=== PATIENT | female | born 1950 | race Caucasian/White ===

== ENCOUNTER 2016-07-17 18:27 | Emergency (ER) | payer OTHER ==
[~2016-07-17] VITALS: Ht 167.6 cm; Wt 59.0 kg
[~2016-07-17 18:27] MED LIST: CEPHALEXIN500 MG PO; MEDROL DOSEPAK1 PAC PO; NEURONTIN300 MG PO; PROVENTIL0.09 MG/A1 INH; ZOLOFT100 M1 PO
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
[2016-07-17 19:18] LABS: ABSOLUTE BASOPHIL COUNT 0 /CUMM (0.0-0.2); ABSOLUTE EOSINOPHIL COUNT 0.1 /CUMM (0.0-0.7); ABSOLUTE GRANULOCYTE CT 8.4 /CUMM (1.4-6.5); ABSOLUTE LYMPH COUNT 2.6 /CUMM (1.2-3.4); ABSOLUTE MONOCYTE COUNT 0.6 /CUMM (0.10-0.60); BASOPHIL % 0.2 % (0.0-2.0); EOSINOPHIL % 0.7 % (0-5); GRANULOCYTE % 71.4 % (42.2-75.2); HEMATOCRIT 44.8 % (37-47); MEAN CORPUSCULAR HGB 31.7 PG (27.0-31.0); MEAN CORPUSCULAR HGB CONC 33.7 G/DL (33.0-37.0); MEAN PLATELET VOLUME 8.1 FL (7.4-10.4); PLATELET COUNT 235 /CUMM (130-400); RBC DISTRIBUTION WIDTH 14.2 % (11.5-14.5); RED BLOOD CELL CT 4.77 /CUMM (4.20-5.40); WHITE BLOOD CELL COUNT 11.7 /CUMM (4.8-10.8)
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
[2016-07-18 14:34] VITALS: BP 143/62
[2016-07-18] MEDS ORDERED: KLONOPIN1 M1 PO (14:42)
[2016-07-18] MEDS ORDERED: VITAMIN D1000 UNIT PO (14:43)
== END 2016-07-18 15:39 ==
LOC: ERH 18:27
PROVIDERS: Physician Assistant
DX: F10.10 Alcohol abuse, uncomplicated (principal)
CPT/HCPCS: 80307; G0463; G0480

== ENCOUNTER 2017-09-07 00:31 | Emergency (ER) | payer OTHER, MEDICARE ==
[~2017-09-07 00:31] MED LIST changes: +KLONOPIN1 M1 PO; +VITAMIN D1000 UNIT PO
--- NOTE | 2017-09-07 00:36 | ED ANKLE/FOOT INJURY COMPLAINT ---
History of Present Illness General Chief Complaint: Foot or Ankle Injury Stated Complaint: RIGHT ANKLE INJURY Source: patient, family, old records Exam Limitations: no limitations Vital Signs & Intake/Output Vital Signs & Intake/Output Vital Signs Date Time Temp Pulse Resp B/P B/P Pulse O2 O2 Flow FiO2 Mean Ox Delivery Rate 09/07 0042 95.4 90 18 118/56 92 Room Air Allergies Coded Allergies: NO KNOWN ALLERGIES (04/26/12) Reconcile Medications Cholecalciferol (Vitamin D3) (Vitamin D) 1,000 UNIT TABLET 1 TAB PO DAILY SUPPLEMENT (Reported) Clonazepam (Klonopin) 1 MG TABLET 1 TAB PO QPM PRN SLEEP/ANXIETY (Reported) Oxycodone HCl/Acetaminophen (Percocet 5-325 MG Tablet) 5 MG-325 MG TABLET 1-2 TAB PO Q6P PRN PAIN Sertraline HCl (Zoloft) 100 MG TABLET 2 TAB PO DAILY MENTAL HEALTH (Reported) Triage Nurses Notes Reviewed? yes HPI: Patient fell while drinking on Thursday and injured her right ankle. Patient continues to have pain and swelling to her right ankle that increases with ambulation. The pain is throbbing in nature. Patient cannot rate the pain. Patient has been drinking tonight. There is no radiation of the pain. The pain and swelling of continued so she comes in for evaluation. Patient has a walker at home that she has been using to help her get around. Past History Travel History Traveled to [place] past 21 day No Medical History Any Pertinent Medical History? 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 No Review of Systems Review of Systems Constitutional: Reports: no symptoms. Respiratory: Reports: no symptoms. Cardiovascular: Reports: no symptoms. Musculoskeletal: Reports: see HPI, joint pain, joint swelling. Neurological/Psychological: Reports: no symptoms. Immunologic/Allergic: Reports: no symptoms. Physical Exam Physical Exam General Appearance: well developed/nourished, alert, awake, moderate distress Head: atraumatic, normal appearance Eyes: Bilateral: PERRL, EOMI. Neck: normal inspection, supple, full range of motion Cardiovascular/Respiratory: normal breath sounds, normal peripheral pulses, regular rate/rhythm, no respiratory distress Leg/Knee/Thigh Left: normal range of motion, normal inspection Leg/Knee/Thigh Right: normal range of motion, normal inspection Ankle Left: normal inspection, normal range of motion Ankle Right: bone tenderness, ecchymosis, evidence of injury, pain, soft tissue tenderness, swelling Foot Right: normal inspection, normal range of motion Neuro/Vascular: normal motor function, normal sensation Psychiatric: awake, alert, oriented x 3 Progress Differential Diagnosis: fracture, dislocation, sprain, contusion Plan of Care: Orders Procedure Date/time Status XRY-ANKLE 3 OR MORE VIEWS R 09/07 34 Active Diagnostic Imaging: Viewed by Me: Radiology Read. Discussed w/RAD: Radiology Read. Radiology Impression: PATIENT: GERRY CALIXTO PRESENT AGE: 67 PATIENT ACCOUNT NO: [id number] : 52 LOCATION: [facility] ORDERING PHYSICIAN: Ilia Sheth MD SERVICE DATE: 09/07/17 EXAM TYPE: RAD - XRY-ANKLE 3 OR MORE VIEWS R EXAMINATION: XR ANKLE, RIGHT CLINICAL INFORMATION: Pain COMPARISON: None TECHNIQUE: AP, lateral, and mortise views of the right ankle. FINDINGS: There is a fracture of the distal fibular metaphysis. No displacement. The ankle mortise remains congruent. There is a nondisplaced fracture at the posterior malleolus as well. No definite medial malleolus fracture. Soft tissue swelling is seen circumferentially, greatest at the lateral ankle. IMPRESSION: Nondisplaced fractures at the lateral and posterior malleoli. No definite medial malleolus fracture. The ankle mortise remains aligned. DICTATED BY: Enrique Malloy MD DATE/TIME DICTATED:09/07/1755 MEDICAL OFFICE SUPERVISOR:MY DATE/TIME TRANSCRIBED:09/07/1755 CONFIDENTIAL, DO NOT COPY WITHOUT APPROPRIATE AUTHORIZATION. <Electronically signed in Other Vendor System> SIGNED BY: Enrique Malloy MD 09/07/171 Departure Departure Disposition: HOME OR SELF CARE Condition: Stable Clinical Impression Primary Impression: Bimalleolar fracture of right ankle Referrals: Joaquina DONALD,Young Pablo MD,[place] (PCP/Family) Additional Instructions: FOLLOW UP WITH DR. TIDWELL TOMORROW KEEP SPLINT ON AND KEEP IT DRY DO NOT WALK ON YOUR RIGHT FOOT RETURN IF SYMPTOMS WORSEN OR FOR ANY CONCERNS TAKE PERCOCET NEEDED FOR PAIN. DO NOT DRINK ALCOHOL WHILE TAKING PERCOCET Departure Forms: Customer Survey General Discharge Information Prescriptions: Current Visit Scripts Oxycodone HCl/Acetaminophen (Percocet 5-325 MG Tablet) 1-2 TAB PO Q6P PRN PAIN #12 TAB Procedures Splinting Location: RIGHT ANKLE Manual Alignment Performed: No Hand-Made Type: orthoglass Splint: POSTERIOR Splint Applied By: splint applied by me Pre-Proc Neuro Vasc Exam: normal Post-Proc Neuro Vasc Exam: normal
[2017-09-07 00:42] VITALS: BP 118/56
--- NOTE | 2017-09-07 01:01 | RADIOLOGY REPORT ---
EXAMINATION: XR ANKLE, RIGHT CLINICAL INFORMATION: Pain COMPARISON: None TECHNIQUE: AP, lateral, and mortise views of the right ankle. FINDINGS: There is a fracture of the distal fibular metaphysis. No displacement. The ankle mortise remains congruent. There is a nondisplaced fracture at the posterior malleolus as well. No definite medial malleolus fracture. Soft tissue swelling is seen circumferentially, greatest at the lateral ankle. IMPRESSION: Nondisplaced fractures at the lateral and posterior malleoli. No definite medial malleolus fracture. The ankle mortise remains aligned.
[2017-09-07] MEDS ORDERED: PERCOCET 5-3251 EACH PO (01:08)
== END 2017-09-07 01:17 ==
LOC: ERH 00:31
DX: S82.844A Nondisplaced bimalleolar fracture of right lower leg, initial encounter for closed fracture (principal); W19.XXXA Unspecified fall, initial encounter; Y93.9 Activity, unspecified; Y92.9 Unspecified place or not applicable
CPT/HCPCS: 73610-RT